=== PATIENT | female | born 1970 ===

== ENCOUNTER 2018-08-22 05:08 | Observation (INO) | payer OTHER ==
[2018-08-22] VITALS (14 sets, daily range): BP systolic 104–140; BP diastolic 69–85
[~2018-08-22] VITALS: Ht 154.9 cm; Wt 87.1 kg
[~2018-08-22 05:08] MED LIST: LISINOPRIL2.5 MG ORAL; METFORMIN HCL1000 M1 ORAL; SIMVASTATIN10 MG ORAL
[2018-08-22] MEDS ORDERED: LOSARTAN POTASS25 MG ORAL (05:53)
[2018-08-22] MEDS ORDERED: METFORMIN HCL1000 M1 ORAL (05:53)
[2018-08-22] MEDS ORDERED: TRI-LO-MARZIA1 EACH PO (05:53)
[2018-08-22] MEDS ORDERED: RELAFEN500 MG PO (05:53)
[2018-08-22] MEDS ORDERED: LR 1000ml 1,000 ML IVLG SCH (06:08)
--- NOTE | 2018-08-22 06:10 | Anethesia Preoperative Eval ---
Anesthesia Pre-op PMH/ROS General Date of Evaluation: Aug 22, 2018 Time of Evaluation: 07:06 Anesthesiologist: Armando ASA Score: ASA 2 Mallampati Score Class I : Soft palate, uvula, fauces, pillars visible Class II: Soft palate, uvula, fauces visible Class III: Soft palate, base of uvula visible Class IV: Only hard plate visible Mallampati Classification: Class II Surgeon: Jayy Diagnosis: Neck Pain Surgical Procedure: ACDF C5-6 Anesthesia History: none Family History: no anesthesia problems Allergies: Coded Allergies: No Known Allergies (Unverified , 08/21/18) Medications: see eMAR Patient NPO?: Yes NPO Date: Aug 21, 2018 NPO Time: 2100 Past Medical History Endocrine: Reports: DM Other: obesity - BMI 37 Anesthesia Pre-op Phys. Exam Physician Exam Last Vital Signs Date Time Temp Pulse Resp B/P (MAP) Pulse Ox O2 Delivery O2 Flow Rate FiO2 08/22/18 05:49 97.3 73 20 128/76 (93) 99 08/22/18 05:46 Room Air Constitutional: NAD Neurologic: CN 2-12 intact Cardiovascular: RRR Respiratory: CTA Gastrointestinal: S/NT/ND Airway Exam Mallampati Score: Class II MO: full ROM: limited Teeth: intact Anesthesia Pre-op A/P Labs Urine Test Test 08/22/18 05:20 Urine HCG, Qualitative Negative (NEGATIVE) Risk Assessment & Plan Assessment: ASA 2 Plan: GA, SED, GlideScope Go Status Change Before Surgery: No Pre-Antibiotics Dru Grams Ancef IV Given Within 1 Hr of Incision: Yes Time Given: 07:36 Baldemar Yoo MD Aug 22, 2018 06:10
[2018-08-22] MEDS ORDERED: Zemuron 50mg/5ml Inj IV ONE (06:11)
[2018-08-22] MEDS ORDERED: Atropine Sulfate 0.4mg/ml inj IVP PRN (06:15)
[2018-08-22] MEDS ORDERED: Ketorolac 30mg Inj IV PRN ×2 (06:15)
[2018-08-22] MEDS ORDERED: Meperidine 50mg/ml Inj(FOR RIGORS ONLY) IVP PRN (06:15)
[2018-08-22] MEDS ORDERED: oxyCODONE HCL/Acetaminophen 5/325mg ORAL PRN (06:15)
[2018-08-22] MEDS ORDERED: LORazepam Inj 2mg/ml 1ml IV PRN (06:15)
[2018-08-22] MEDS ORDERED: DiphenhydrAMINE 50mg/ml Inj IVP PRN (06:15)
[2018-08-22] MEDS ORDERED: Hydromorphone 0.5mg/0.5ml inj IVP PRN ×2 (06:15→12:15)
[2018-08-22] MEDS ORDERED: Midazolam 2mg/2ml Inj IVP PRN (06:15)
[2018-08-22] MEDS ORDERED: fentaNYL 100 mcg/2 mL IV PRN (06:15)
[2018-08-22] MEDS ORDERED: Norco 5mg/325mg tab ORAL PRN (06:15)
[2018-08-22] MEDS ORDERED: HYDROcodone/Acetamin 7.5/325 tab ORAL PRN (06:15)
[2018-08-22] MEDS ORDERED: Metoclopramide 10mg/2ml Inj IVP PRN (06:15)
[2018-08-22] MEDS ORDERED: Sodium Chloride 10ml vial INJ ONE (06:29)
[2018-08-22] MEDS ORDERED: Lidocaine 1% MPF 10mg/ml 5ml ONE (06:29)
[2018-08-22] MEDS ORDERED: Lidocaine 1% Plain 30 ml INJ ONE (06:29)
[2018-08-22] MEDS ORDERED: fentaNYL 100 mcg/2 mL IV ONE ×2 (06:30→08:25)
[2018-08-22] MEDS ORDERED: Acetaminophen (Non formulary) 100 ML IV ONE (06:30)
[2018-08-22] MEDS ORDERED: Bacitracin 50000 Units Vial ONE (06:56)
[2018-08-22] MEDS ORDERED: Thrombin 5000 units TOPIC ONE (06:56)
[2018-08-22] MEDS ORDERED: Gelfoam Size TOPIC ONE (06:56)
[2018-08-22] MEDS ORDERED: NS Irrig 1000ml ONE (07:00)
[2018-08-22] MEDS ORDERED: Neostigmine 1mg/ml 10ml Inj ONE (07:00)
[2018-08-22] MEDS ORDERED: Propofol 1,000mg/ 100ml btl IV ONE (07:00)
[2018-08-22] MEDS ORDERED: Sterile Water Irrig 1000ml IRRIG ONE (07:00)
[2018-08-22] MEDS ORDERED: LR 1000ml ONE ×2 (07:00→17:46)
--- NOTE | 2018-08-22 07:13 | Pre-Procedure Note/Attestation ---
Pre-Procedure Note/Attestation Complete Prior to Procedure Planned Procedure: not applicable Procedure Narrative: C5=C6 ACDF Plate Indications for Procedure Pre-Operative Diagnosis: Trauma, HNP, radiculopathy, Neurological Deficit Attestation I attest that I discussed the nature of the procedure; its benefits; risks and complications; and alternatives (and the risks and benefits of such alternatives ), prior to the procedure, with the patient (or the patient's legal patient services representative). I attest that, if there was a reasonable possibility of needing a blood transfusion, the patient (or the patient's legal patient services representative) was given the [facility] standardized written summary, pursuant to the Hollis Crisman Blood Safety Act ([place] Health and Safety Code # 1645, as amended). I attest that I re-evaluated the patient just prior to the surgery and that there has been no change in the patient's H&P, except as documented below: Abisai Hope MD Aug 22, 2018 07:13
--- NOTE | 2018-08-22 07:16 | Immediate Post-Op Evaluation ---
Immediate Post-Op Evalulation Immediate Post-Op Evalulation Procedure: ACDF C5-6 Date of Evaluation: Aug 22, 2018 Time of Evaluation: 09:59 IV Fluids: 900 LR Blood Products: 0 Estimated Blood Loss: 25 Urinary Output: 0 Blood Pressure Systolic: 115 Blood Pressure Diastolic: 79 Pulse Rate: 87 Respiratory Rate: 16 O2 Sat by Pulse Oximetry: 99 Temperature (Fahrenheit): 97.1 Pain Score (1-10): 2 Nausea: No Vomiting: No Complications 0 Patient Status: awake, reacts, patent, none Hydration Status: adequate Dru grams Ancef IV Given Within 1 Hr of Incision: Yes Time Given: 07:36 Baldemar Yoo MD Aug 22, 2018 07:16
[2018-08-22] MEDS ORDERED: Labetalol 5mg/ml 20ml vial IV ONE (08:25)
[2018-08-22] MEDS ORDERED: Glycopyrrolate 0.2mg/ml 1ml Vial ONE (08:55)
--- NOTE | 2018-08-22 09:24 | Brief Operative Note ---
Immediate Post Operative Note Operative Note Pre-op Diagnosis: Trauma, HNP, radiculopathy, Neurological Deficit Procedure: ACDF C5-C6, Anterior Plate C5-C6 Post-op Diagnosis: same as pre-op Findings: consistent w/pre-op dx studies Surgeon: Jayy PATEL Spray Machine Loader: Naomy CARRILLO Anesthesiologist: Fredo PATEL Anesthesia: general Specimen: yes Complications: none Condition: stable Fluids: anesthesia Estimated Blood Loss: minimal Drains: none Implant(s) used?: Yes Abisai Hope MD Aug 22, 2018 09:24
[2018-08-22] MEDS ORDERED: Naloxone 0.4mg/ml Inj IVP PRN (09:30)
[2018-08-22] MEDS ORDERED: D5 1/2NS 1,000 ML IV SCH (11:42)
[2018-08-22] MEDS ORDERED: Chloraseptic Spray 20mL Bottle ORAL PRN (13:00)
--- NOTE | 2018-08-22 14:42 | Diagnostic Imaging Report ---
Indication: Intraoperative imaging Findings: 4 fluoroscopic views of the cervical spine were obtained. Intraoperative imaging showing anterior fusion at C5-6 with discectomy at this level. IMPRESSION: Intraoperative imaging
[2018-08-22] MEDS ORDERED: LR 1000ml 1,000 ML IVLG ONE (15:20)
[2018-08-22] MEDS ORDERED: TransDerm Scop 1mg/72HR Patch TDERMAL SCH (15:20)
[2018-08-22] MEDS ORDERED: ceFAZolin sod 1 GM in D5W 55 ML IV SCH (15:30)
[2018-08-22] MEDS ORDERED: Morphine Sulfate 4mg/ml Inj (IV/IM USE ONLY) IM PRN (15:30)
--- NOTE | 2018-08-22 16:45 | Operative Note - Dictated ---
DATE OF OPERATION: 08/22/2018 SURGEON: Abisai Hope M.D. HELICOPTER ENGINEER: GERARDO Begum. ANESTHESIOLOGIST: Baldemar Yoo M.D. ANESTHESIA: General anesthesia with intubation. 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 INTRAOPERATIVE OBSERVATIONS: Herniated nucleus polyposis. ESTIMATED BLOOD LOSS: Minimal. DRAINS: None. COMPLICATIONS: None. POSTOPERATIVE CONDITION: Good/stable. OPERATIVE PROCEDURE: 1. C5-C6 anterior cervical diskectomy and fusion. 2. Resection anterior osteophyte. 3. Decompression of spinal cord, nerve roots, interbody reconstruction. 4. Titanium interbody graft containing osteopromotive material with local autograft. 5. Lordotic with correction deformity. 6. Anterior internal plate fixation bilateral C5-C6. 7. Intraoperative SSEP monitoring. 8. High-powered microscopic dissection. 9. Intraoperative radiographs interpreted by surgeon with postoperative AP and lateral radiographs recorded. DESCRIPTION OF PROCEDURE: The patient was brought to the operating room and in the supine position, general anesthesia with intubation was induced. After appropriate positioning, a needle within the sheath was taped to the right lateral aspect of the neck and a cross-table radiograph was obtained demonstrating the correct level for incision placement as well as visualization of the appropriate intervals. The contralateral (left) aspect of the neck was marked sterilely in a skin fold at the appropriate interval. Anterior neck was sterilely prepped and draped free in usual sterile fashion. A transverse incision left sharply through dermis and epidermis. Electrocautery dissection was carried through the subcutaneous tissue to the level of the platysmas muscle. It was identified isolated and transected in line with the incision. Blunt dissection was carried under high-power magnification through the deep cervical, pretracheal fascia medial to the sternocleidomastoid left as well as to the carotid sheath. Dissection was carried bluntly to the midline between the right and left longus colli muscles. Spinal needle bent at 90 degree angle sterile was placed into the disk space under direct observation. Needle was bent so as to avoid penetration greater than 3 mm. Cross-table imaging was obtained, interpreted by surgeon demonstrating the correct level for further dissection. Level was marked. Needle removed. Subperiosteal dissection not exceeding 3 mm in medial lateral extent of longus colli muscles was followed with placement of retractors. Spinal was placed once again into the disk space and a cross-table image was obtained confirming the correct level for the dissection. Under high-power magnification anterior osteophyte was removed with Midas Pro bur dissection. Diskectomy followed with denuding of the endplates of cartilage to subchondral but not through the subchondral bone. Posterior longitudinal ligament resected. Decompression of spinal cord/foramen. SSEP monitoring stable. Interpositional grafting with the appropriate dimension graft after trial utilized, lordotic. Graft containing osteopromotive material and local autograft was tamped into position. Cross-table imaging demonstrated excellent alignment and position. AP revealed correct alignment. A 10 pounds of traction around the neck was removed. Interval was irrigated with antibiotic-containing saline. Anterior internal plate fixation of the appropriate dimensions with bilateral C5, bilateral C6, internal fixation screws titanium. Locked into position. AP lateral radiographs revealed appropriate positioning dimensions. The wound was irrigated and maintained saline. Under high-power magnification, exploration did not reveal any excoriation or laceration of vital structures. No cerebrospinal fluid leakage was noted anytime during the procedure. SSEP monitoring remained stable throughout the procedure. Negative EMG activity. FloSeal applied followed by reapproximation of platysmas muscle followed by reapproximation of dermis and epidermis. Dermabond applied. This was followed application once dry of the sterile bandage maintained in place with tape. The patient was awakened, extubated in the operating room, and transported to postop recovery in good stable condition. Abisai Hope M.D. DR: Marycarmen JOB#: [id number] CC:
[2018-08-22] MEDS ORDERED: D5 1/2NS 1000ml IV ONE (17:46)
[2018-08-22] MEDS ORDERED: Tubing IV Secondary IV ONE (17:46)
--- NOTE | 2018-08-22 22:15 | Consultation ---
DATE OF CONSULTATION: 08/22/2018 CONSULTING PHYSICIAN: Jeremy Thomas M.D. REFERRING PHYSICIAN: Abisai Hope M.D. REASON FOR CONSULTATION: Acute pain consult. Dear Dr. Hope, Thank you kindly for consulting me to evaluate and render an opinion as to how to proceed in the management of the patient's acute postoperative cervical spine pain after cervical spine instrumentation surgery today. The patient is a pleasant 48-year-old woman, who I saw at the bedside with her . The patient slipped and fell at a mall near [place], [place] approximately one year ago. Today, she required cervical spine instrumentation surgery by Dr. Abisai Hope to alleviate her refractory pain complaints. She complains significant discomfort and severe postoperative nausea and vomiting, postoperatively. You consulted me to help with her postoperative management. I saw the patient at bedside with her . I discussed the case with yourself, Dr. Hope along with the hospital pharmacist, Clyde, the nurse RN, on-call. I reviewed multiple records from the nursing and pharmacy departments along with records from the surgery suite, from today's date of surgery at [facility], August 22, 2018. I also reviewed records from Dr. Johnson, who performed the preoperative history and physical along with multiple diagnostic testings. PAST MEDICAL HISTORY: 1. Acute postoperative cervical spine pain, status post cervical spine instrumentation surgery by Dr. Abisai Hope, July 2018. 2. Slip and fall accident, August 2017. 3. Obesity. 4. Hyperlipidemia. 5. New-onset diabetes. 6. History of facial hemiparesis 40 years ago and a second episode 28 years ago. 7. Diabetes. 8. Hypertension. PAST SURGICAL HISTORY: Tonsillectomy. ALLERGIES TO MEDICATIONS: No known drug allergies. MEDICATIONS AT HOME: Losartan, metformin, NSAIDs, control, and Zocor. FAMILY HISTORY LIST: Negative. SOCIAL HISTORY: The patient is accompanied by bedside by her . She has three children. 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 Her is at the bedside with her. REVIEW OF SYSTEMS: Per Dr. Johnson. PHYSICAL EXAMINATION: VITAL SIGNS: Age 48. Height 5 feet 1 inch, weight 191 pounds, and body mass index 36. HEENT: Normocephalic and atraumatic. No Cabrera palsy. No Stu syndrome. Extraocular muscles intact. CHEST: Clear to auscultation. HEART: Regular rate and rhythm. ABDOMEN: Obese. SKIN: Cervical spine wound is clean and dry. GENITOURINARY: Deferred. NEUROLOGIC: Significant discomfort with range of motion. Detailed neurologic exam per Dr. Hope. The patient appears to be swallowing, phonating, and breathing within normal limits. DIAGNOSTIC TESTING: Labs from August 17, 2018 shows creatinine 0.6, BUN 15, sodium 137, potassium 3.9, chloride 104, bicarb 19, and calcium 9.2. Troponin 6.9. Albumin 4.3. Total bilirubin is 0.5. Alkaline phosphatase 51. AST 61 and ALT 42. PTT 25. White count 9, hematocrit 42, and platelets 234,000. INR is 0.9. Hepatitis B and C negative. Hemoglobin A1c is 6.6, high normal. MRSA screen negative. Urinalysis negative. HIV negative. Glucose 101. A 12-lead EKG shows heart rate 77. Echocardiogram shows normal left ventricular function with ejection fraction 65% to 70%. Preoperative chest x-ray shows no acute cardiopulmonary process identified, August 15, 2018. MRI cervical spine shows impression C5-C6 asymmetric broad posterior disk protrusion greatest in the left paracentral location at about 3 to 4 mm with mild indentation of the left spinal cord and mild compromise in left lateral recess, date June 18, 2018. IMPRESSION: 1. Acute postoperative cervical spine pain, status post cervical spine instrumentation surgery by Dr. Abisai Hope, in July 2018. 2. Slip and fall accident, August 2017. 3. Obesity. 4. Hyperlipidemia. 5. New-onset diabetes. 6. History of facial hemiparesis 40 years ago and a second episode 28 years ago. 7. Diabetes. 8. Hypertension. TREATMENT RECOMMENDATIONS: With repeated episodes of emesis postoperatively, certainly one of the priority is to minimize her nausea and juan carlos further vomiting episodes, which certainly would exacerbate her pain complaints and could potentially jeopardize her surgical repair. The patient denies glaucoma symptoms, so I have ordered a scopolamine patch to be placed immediately. The patient has failed a trial of Zofran, which I ordered 4 mg intravenously every 4 hours p.r.n. as a first-line agent. I have asked the pharmacist to dose her with intramuscular Phenergan one time 12.5 mg now, which will be repeated every 8 hours p.r.n. I have asked the pharmacist to bolus a liter of lactated Ringer's over the next half hour to improve her intravascular hydration. The patient does have a supply of Soma and [place] already at home. I will trial her on IV Dilaudid 0.5 mg. Although this dose did help with the pain, it is unclear if this worsens her nausea symptoms. Therefore, I switched her to intramuscular morphine 3 mg every three hours p.r.n. for severe breakthrough pain. I had the nurse to leave a Chloraseptic spray bottle at the bedside to help with topical sore throat complaints. I will place the patient on Protonix 40 mg nightly for GI ulcer prophylaxis and also ordered p.r.n. dose of Mylanta 30 mL q.6 h. in case of any GERD symptom exacerbation. Incentive spirometer has been ordered to encourage good pulmonary toilet. The patient already has a supply of Soma and [place] for home usage. The patient has already been able to void urine after surgery. We will see how she continues to increase her ambulation and diet over the next 3 hours, so hopefully expedite her hospital discharge. Jeremy Thomas M.D. DR: ELVIN JOB#: [id number] CC:
[2018-08-23 12:07] VITALS: BP 116/72
--- NOTE | 2018-08-23 12:07 | 48 Hour Post Anesthesia Eval ---
Post Anesthesia Evaluation Procedure: ACDF C5-6 Date of Evaluation: Aug 23, 2018 Time of Evaluation: 12:06 Blood Pressure Systolic: 116 0: 72 Pulse Rate: 64 Respiratory Rate: 20 Temperature (Fahrenheit): 97.6 O2 Sat by Pulse Oximetry: 98 Airway: patent Nausea: No Vomiting: No Pain Intensity: 2 Hydration Status: adequate Cardiopulmonary Status: stable Mental Status/LOC: patient returned to baseline Follow-up Care/Observations: n/a Post-Anesthesia Complications: none Follow-up care needed: ready to discharge William Beasley MD Aug 23, 2018 12:07
== END 2018-08-22 17:47 | disposition home or self-care (01) ==
LOC: SUR 05:08 → 3E 10:56 → UNDODISOB 17:47
DX: M50.122 Cervical disc disorder at C5-C6 level with radiculopathy (principal); G89.18 Other acute postprocedural pain; E11.9 Type 2 diabetes mellitus without complications; Z79.84 Long term (current) use of oral hypoglycemic drugs; E78.5 Hyperlipidemia, unspecified; I10 Essential (primary) hypertension; E66.9 Obesity, unspecified; Z68.37 Body mass index [BMI] 37.0-37.9, adult
CPT/HCPCS: 20936; 22551; 22853; 36415; 72040; 76001; 81025; 82962; 86850; 86900; 86901; 87081; 96360; 96365; 96366; 96372; 96374; 96375; C1713; G0378; J0690; J1170; J1885; J2001; J2250; J2405; J2550; J2704; J2710; J2765; J3010; 94003; 94150